=== PATIENT | male | born 1980 | race Caucasian/White ===

== ENCOUNTER → 2021-09-04 | Emergency (ER) | payer BC ==
[~2021-09-04] VITALS: Ht 177.8 cm; Wt 104.3 kg
[~2021-09-04] MED LIST: DIPHENHYDRAMINE INJ 50 MG/ML VIAL IVP ONE; HYDR-3917 PO; METOCLOPRAMIDE HCL 10 MG/2 ML VIAL IVP ONE; MORPHINE 4 MG INJ. 4 MG/ML VIAL IVP ONE; ONDA-8 TL; ONDANSETRON 4 MG ODT TAB ONE; ONDANSETRON 4 MG ODT TAB PO ONE; fentaNYL CITRATE/PF 100 MCG/2 ML AMP IVP ONE
[2021-09-04 14:49] VITALS: BP_SYST 134
[2021-09-04 16:09] LABS: BASOPHILS % (AUTO) 0.4 % (0.0-2.0); EOSINOPHILS # (AUTO) 0.1 K/uL (0.0-0.4); EOSINOPHILS % (AUTO) 0.7 % (0.0-4.0); HEMATOCRIT 49.5 % (36-54); HEMOGLOBIN 17.1 g/dL (14.0-18.0); LYMPHOCYTES # (AUTO) 1.4 K/uL (1.0-5.5); LYMPHOCYTES % (AUTO) 16.3 % (20.5-51.5); MEAN CORPUSCULAR HEMOGLOBIN 32 pg (27-31); MEAN CORPUSCULAR HGB CONC 35 % (32-36); MEAN CORPUSCULAR VOLUME 92 fL (79.0-98.0); MONOCYTES # (AUTO) 0.9 K/uL (0.0-1.0); MONOCYTES % (AUTO) 10.1 % (1.7-9.3); NEUTROPHILS # (AUTO) 6.3 K/uL (1.8-7.7); NEUTROPHILS % (AUTO) 72.5 % (40.0-70.0); PLATELET COUNT (AUTO) 189 K/uL (130-430); RED BLOOD CELL COUNT(AUTO) 5.41 MIL/uL (4.2-6.2); RED CELL DISTRIBUTION WIDTH 12.6 % (9.0-15.0); WHITE BLOOD COUNT (AUTO) 8.7 K/uL (4.8-10.8)
[2021-09-04 16:16] LABS: ANION GAP 12 (5-15); CALCIUM 9.1 mg/dL (8.4-11.0); CHLORIDE 103 mmol/L (98-107); CREATININE 1.18 mg/dL (0.55-1.30); GFR AFRICAN AMERICAN 87 mL/min (>90); GLUCOSE 136 mg/dL (70-99); POTASSIUM 4.1 mmol/L (3.5-5.1); SODIUM SERUM 139 mmol/L (136-145); UREA NITROGEN, BLOOD 17 mg/dL (8-21)
[2021-09-04 16:26] LABS: ALANINE AMINOTRANSFERASE 86 U/L (12-78); ALBUMIN 4.2 g/dL (3.4-4.8); ASPARTATE AMINOTRANSFERASE 31 U/L (10-37)
[2021-09-04 16:28] LABS: ALCOHOL, BLOOD < 3 mg/dL (<10)
[2021-09-04 18:10] LABS: PROTHROMBIN TIME 10.3 SECS (9.5-12.5)
[2021-09-04 19:35] VITALS: BP_SYST 141
== END | disposition left against medical advice (07) ==
LOC: SED 14:40
DX: R51.9 Headache, unspecified (principal)
CPT/HCPCS: 36415; 70450; 71045; 76376; 80053; 82550; 84484; 85025; 85610; 85730; 93005; 96374; 96375; 99285; G0482; J1200; J2270; J2765; J3010; Q0162